=== PATIENT | male | born 1960 | race Caucasian/White ===

== ENCOUNTER 2023-04-04 09:09 | Outpatient (AMB) | payer OTHER, SELFPAY ==
--- NOTE | 2023-04-04 09:16 | A.OFFVIS_ITS ---
Intake Vital Signs 04/04/23 09:19 Height 5 ft 8 in Weight 198 lb BMI 30.1 BP 116/74 Blood Pressure Location Lt brachial Position Sitting Pulse 72 Intake Visit Reasons: Diarrhea Intake Note: Patient new consult for diarrhea and pre colonoscopy screening. Patient cc: diarrhea and soft BM. Denies any other GI issues. 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 Accompanied by: Self / Same As Patient Allergies No Known Allergies Allergy (Verified 04/04/23 09:15) HPI Diarrhea HPI Details 62 yr old patient being seen for assessm ent for diarrhea He has been having loose stools, several times a day--going on for few months hard to flush, sometimes greasy, bad smell passing urine is more difficult he has noted what he thinks are hemorrhoids when he wipes no nausea or vomiting, mild nausea last week, nothing now no abdominal pain no abx in last several months no foreign travel stress at work colonsocopy in past ?5 yrs [place] with polyps removed PMH: HLP, HTN, ADHD, anxiety PSH: TKR SH: occ alcohol, non smoker, occ THC use --production operations engineer FH: father 62, unknown cancer ROS: Constitutional : No Weight loss, No Fever, No Chills ENT/Mouth : No sore throat, No Rhinorrhea Eyes: No Swelling, No Redness Cardiovascular : No Chest Pain, No SOB, No Edema Respiratory : No Cough, No Sputum, No Wheezing Gastrointestinal : see HPI Genitourinary : NO Dysuria, No Urinary Frequency, No Hematuria, No Urgency Musculoskeletal : No joint pain, No Myalgias, No Joint Swelling Skin : No Skin Lesions, No rash Neuro : No Weakness, No Numbness, No Dizziness, No Headache Psych : No Anxiety/Panic, No Depression Heme/Lymph: No Bruising, No Lymphadenopathy Endocrine : No Polyuria, No Polydipsia All other systems reviewed and are negative. EXAM: GENERAL: The patient is well developed and nontoxic. VITAL SIGNS:see workflow HEENT: Nonicteric sclerae, PERRLA, EOMI. Oropharynx clear. Moist mucous membranes. Conjunctivae appear well perfused. No thyroid mass. CHEST: Chest wall is nontender. HEART: Regular rate and rhythm without murmurs. LUNGS: Clear to auscultation bilaterally. ABDOMEN: Soft, positive bowel sounds, nontender, no organomegaly.no flank tenderness SKIN: No rash, no excessive bruising, petechiae, or purpura. NEUROLOGIC: Cranial nerves II-XII intact without motor/sensory deficit. A/P: 1/ diarrhea, many possibilities but some red flags with blood in stool, ddx: IBD< neoplasia, infectious etiology, medication effects, endocrine Plan: 1/ Labs as below incl c diff, celiac dis ease, 2/ EGD and colonsocopy with suprep sent, PFSH Surgical History (Updated 04/04/23 @ 09:22 by Idalia Pitts) Hx of knee surgery Family History (Updated 04/04/23 @ 09:21 by Idalia Pitts) Father Cancer Social History Household Members: Family Alcohol intake: current Patient Tobacco Use Status: Never used Tobacco Substance Use Type: Marijuana Assessment & Plan Assessment & Plan (1) Diarrhea: Code(s): R19.7 - Diarrhea, unspecified Plan: Plan: 1/ Labs as below incl c diff, celiac disease, 2/ EGD and colonsocopy with suprep sent, Orders: Orders C Reactive Protein Today R19.7 - Diarrhea, unspecified Transglutaminase IgA Today R19.7 - Diarrhea, unspecified TSH reflex Free T4 Today R19.7 - Diarrhea, unspecified Fecal Fat Qualitative Today R19.7 - Diarrhea, unspecified CDiff Gene PCR Today R19.7 - Diarrhea, unspecified Lactoferrin, Fecal, Quant. Today K51.50 - Left sided colitis without complica tions, R19.7 - Diarrhea, unspecified Complete Blood Count Auto Diff Today R19.7 - Diarrhea, unspecified Comprehensive Met. Panel Today K75.81 - Nonalcoholic steatohepatitis (FLOREZ), R19.7 - Diarrhea, unspecified Transglutaminase Ab IgG Today G89.29 - Other chronic pain, R10.33 - Periumbilical pain, R19.7 - Diarrhea, unspecified UA CC w/rflx Micro + Cult Today R19.7 - Diarrhea, unspecified, R30.0 - Dysuria GI Panel Today R19.7 - Diarrhea, unspecified Medications: New sodium,potassium,mag sulfates 17.5-3.13-1.6 gram (Suprep Bowel Prep Kit) DILUTE; drink 1/2 at 6-8 pm and half at 11 PM- 1AM 354 mL 0RF Coding Level of Care Code New Pt Level 4 (32452) Diagnoses Diarrhea R19.7
[2023-04-04 09:19] VITALS: BP 116/74; PULSE 72; BMI 30.1
== END 2023-04-04 10:37 | disposition home or self-care (01) ==
PROVIDERS: Visit Provider Internal Medicine Gastroenterology
DX: R19.7 Diarrhea, unspecified (principal)
CPT/HCPCS: 99204

== ENCOUNTER 2023-04-04 09:09 | Outpatient (REF) | payer OTHER, SELFPAY ==
[2023-04-04 10:09] LABS: MANUAL DIFF FLAG NO
[2023-04-04 11:09] LABS: Basophils Percent Auto 0.4 % (0-2); Eosinophils Absolute Auto 0.3 X10*3/uL (0.0-0.4); Eosinophils Percent Auto 4.1 % (0-4); Hematocrit 47.2 % (42.0-52.0); Hemoglobin 15.4 g/dl (14.0-18.0); Imm Gran Abs Auto 0.03 X10*3/uL (0.00-0.03); Imm Gran Pct Auto 0.4 % (0.0-0.4); Lymphocytes Absolute Auto 2.3 X10*3/uL (1.2-4.9); Lymphocytes Percent Auto 31.9 % (20-40); Mean Corpuscular HGB Conc 32.6 g/dl (31.0-36.0); Mean Corpuscular Hemoglobin 30.8 pg (27.0-33.0); Mean Corpuscular Volume 94.4 fL (80.0-98.0); Monocytes Absolute Auto 0.6 X10*3/uL (0.1-1.2); Monocytes Percent Auto 8.8 % (2-11); Neutrophils Absolute Auto 3.8 x10*3/uL (2.0-8.3); Neutrophils Percent Auto 54.4 % (45-73); Platelet Count 209 X10*3/uL (160-400); Red Cell Distribution Width 13.1 % (11.0-16.0); White Blood Count 7.1 X10*3/uL (4.8-10.8)
[2023-04-04 11:10] LABS: Appearance Urine Clear; Color Urine Dark Yellow; Glucose Urine UA Negative (Negative); Leukocyte Esterase Urine Trace (Negative); Nitrite Urine Negative (Negative); PH 5.5 (5.0-9.0); Specific Gravity - Urine >= 1.030 (1.005-1.025); UMIC TRIGGER UACC YES; Urine Blood Negative (Negative); Urine Ketones Trace mg/dL (Negative); Urine Protein Trace mg/dL (Neg-Trace)
[2023-04-04 11:13] LABS: Bacteria Urine None Seen (None Seen); Hyaline Casts Urine 0-2 /LPF (0-2); RBC Urine 0-2 /HPF (0-2); Squamous Epithelial Cell Urine 0-2 /HPF (0-2); WBC Urine 0-5 /HPF (0-5)
[2023-04-04 11:54] LABS: PSA,Total (Free>4and<10) 1.76 ng/mL (0.00-4.00)
[2023-04-04 11:56] LABS: Alanine Aminotransferase 25 U/L (0-40); Albumin Level 4.1 g/dL (3.5-5.0); Alkaline Phosphatase 57 U/L (39-117); Anion Gap 15 (12-20); Aspartate Amino Transferase 21 U/L (5-37); Bilirubin Total 0.8 mg/dL (0.0-1.0); Blood Urea Nitrogen 19 mg/dL (9-16); C Reactive Protein < 0.04 mg/dL (< or = 0.50); Calcium 9.4 mg/dL (8.4-10.2); Carbon Dioxide 27 mmol/L (22-29); Chloride 106 mmol/L (96-108); Estimated Glomerular Filt Rate > 60; Glucose Random 97 mg/dL (60-115); Potassium 4.6 mmol/L (3.3-5.1); Sodium 143 mmol/L (135-145); Total Protein 6.6 g/dL (6.5-8.0)
[2023-04-04 12:00] LABS: TSH reflex Free T4 1.21 uIU/mL (0.32-4.0)
[2023-04-04 19:07] LABS: CDiff Gene PCR NEGATIVE (Negative)
[2023-04-05 10:29] LABS: Adenovirus F 40/41 Not Detected (Not Detect.); Astrovirus Not Detected (Not Detect.); Campylobacter Not Detected (Not Detect.); Cryptosporidium Not Detected (Not Detect.); Cyclospora cayetanensis Not Detected (Not Detect.); E. coli EAEC Not Detected (Not Detect.); E. coli EPEC Not Detected (Not Detect.); E. coli ETEC Not Detected (Not Detect.); E. coli STEC Not Detected (Not Detect.); Entamoeba histolytica Not Detected (Not Detect.); Giardia lamblia Not Detected (Not Detect.); Norovirus GI/GII Not Detected (Not Detect.); Plesiomonas shigelloides Not Detected (Not Detect.); Rotavirus A Not Detected (Not Detect.); Salmonella Not Detected (Not Detect.); Sapovirus Not Detected (Not Detect.); Shigella sp./EIEC Not Detected (Not Detect.); Vibrio Not Detected (Not Detect.); Vibrio Cholerae Not Detected (Not Detect.); Yersinia enterocolitica Not Detected (Not Detect.)
[2023-04-07 22:53] LABS: Transglutaminase Ab IgG <1.0 U/mL; Transglutaminase IgA <1.0 U/mL
[2023-04-09 14:39] LABS: Fecal Fat Qualitative Normal (Normal)
[2023-04-12 23:54] LABS: Lactoferrin, Fecal, Quant. <6.25 mcg/mL (<7.25)
== END 2023-04-04 09:10 | disposition home or self-care (01) ==
LOC: HO.LAB 09:09
PROVIDERS: Visit Provider Internal Medicine Gastroenterology
DX: Z12.5 Encounter for screening for malignant neoplasm of prostate (principal); R19.7 Diarrhea, unspecified; K75.81 Nonalcoholic steatohepatitis (NASH); R39.11 Hesitancy of micturition; R10.33 Periumbilical pain; G89.29 Other chronic pain; K51.50 Left sided colitis without complications
CPT/HCPCS: 36415; 80053; 81001; 81003; 82705; 83631; 84153; 84443; 85025; 86140; 86364; 87493; 87507

== ENCOUNTER 2023-04-15 12:22 | Day surgery (SDC) | payer OTHER, SELFPAY ==
--- NOTE | 2023-04-15 12:32 | MHC.SHP ---
Pre-Procedural Eval Section A - 24 Hr Update-Section A only Date of Service: 04/15/23 The patient is an INPATIENT: No The patient has been examined within 24 hours of the surgical procedure. The History & Physical has been completed within 30 days and I have reviewed it.: Yes Section B - Complete if H&P > 30 days Chief Complaint: Diarrhea, unspecified Allergies: Allergies Allergy/AdvReac Type Severity Reaction Status Date / Time No Known Allergies Allergy Verified 04/04/23 09:15 Plan I have reviewed the history and physical and performed a pertinent physical examination on my patient. No changes have occurred unless specified. Time Spent With Patient Time: Total time managing care of this patient today ____ minutes.
[2023-04-15 12:39] VITALS: BP 147/83; PULSE 78; RESP 19; TEMP 36.1; O2SAT 98; BMI 30.1
[2023-04-15] MEDS: Lactated Ringers 1,000 ML 50 ML IVCONT (13:01)
--- NOTE | 2023-04-15 13:41 | P.OP_ITS ---
Operative Note Operative Note Date of Service: 04/15/23 Narrative: Operative Information Procedure Description: EGD, Colonoscopy Indication: diarrhea, abn bowel habit Anesthesia: MAC FLEXIBLE TRANSORAL UPPER GASTROINTESTINAL ENDOSCOPY AND COLONOSCOPY PROCEDURE NOTE UPPER ENDOSCOPY Consent: Indications for the procedure and potential complications of bleeding, perforation, reaction to medications and missed diagnosis were discussed with the patient and informed consent was obtained. Instrument: Olympus variable stiffness pediatric scope 190L Monitoring: Vital signs and clinical assessment, continuous EKG monitoring, Pulse oximetry, Carbon Dioxide monitoring and blood pressure monitoring were done throughout the procedure. Procedure: The patient was placed in the left lateral decubitis position and pre-procedure medications were administered and a bite block was placed. The endoscope was inserted into the mouth and advanced under direct vision to the third part of duodenum. A careful inspection was made as the upper endoscope was withdrawn including a retroflexed examination of the proximal stomach; Findings and interventions are described below. Findings: Larynx:normal Esophagus: GE junction at 38 cm, diaphragm hiatus at 38 cm, bogginess and erythema, schatzki ring noted, bx taken aslo from distal esophagus Stomach: streaky erythema in antrum with few fundic gland polyps noted. Biopsies were obtained. Grade 2 flap valve on retroflexed examination of the cardia. Duodenum: Normal bulb and descending duodenum, bx taken Intervention: Biopsies as noted above COLONOSCOPY Instrument: Olympus variable stiffness pediatric scope 190L Colonoscopy Monitoring: Vital signs and clinical assessment, continuous EKG monitoring, Pulse oximetry, Carbon Dioxide monitoring and blood pressure monitoring were done throughout the procedure. Colon withdrawal time was 10 minutes. Procedure: The patient was placed in the left lateral decubitis position and pre-procedure medications were administered. After a digital rectal examination of the ano-rectum, the video colonoscope was inserted into the rectum and advanced through the colon to the cecum/TI. The colonoscope was slowly withdrawn in a retrograde panoramic fashion and the colon mucosa was carefully examined including a retroflexed view of the rectum. Findings and interventions are described below. Procedure Difficulty:moderate Findings: Terminal Ileum-normal, bx taken Cecum:normal Right sided retroflexion- normal Ascending Colon: normal, bx taken Transverse Colon -normal Descending Colon:normal Sigmoid Colon: mild diverticulosis, bx taken Rectum: Retroflexion with small to medum sized internal hemorrhoids, grade I Anorectum - normal Colon preparation: [place] Bowel Preparation Scale Right colon; 2 Transverse colon: 2 Left colon; 2 (0 = Unprepared colon segment with mucosa not seen due to solid stool that cannot be cleared. 1 = Portion of mucosa of the colon segment seen, but other areas of the colon segment not well seen due to staining, residual stool and/or opaque liquid. 2 = Minor amount of residual staining, small fragments of stool and/or opaque liquid, but mucosa of colon segment seen well. 3 = Entire mucosa of colon segment seen well with no residual staining, small fragments of stool or opaque liquid) Impression and Post Procedure Diagnosis: Endoscopy Findings: gastritis esophagitis schatzki ring Colonoscopy Findings: internal hemorrhoids diverticular disease Plan: Await Pathology results Repeat Colonoscopy in 10 years or earlier if clinically indicated High fiber diet leaflet avoid straining at stool, epsom salts and sitz bath, anusol supps or cream GERD precautions, if ongoing sx then VCE vs CTe to r/o enteritis Above findings were reviewed with the patient and relevant handouts were provided if indicated.
--- NOTE | 2023-04-15 14:06 | HO.ANESPROP2 ---
HPI - Anesthesia Eval Consult details Narrative: 62 M for colonoscopy PMF Active Problems Active Problems: All Active Problems (Updated 04/11/23 @ 11:07 by Moni Garcia, RN) Urinary hesitancy (Acute) Diarrhea (Acute) Past Medical History Medical History (Updated 04/11/23 @ 11:07 by Moni Garcia, RN) Anxiety ADHD Elevated cholesterol HTN (hypertension) Family History Family History (Updated 04/04/23 @ 09:21 by Idalia Pitts) Father Cancer Family history of problems with anesthesia: No Surgical History Surgical History (Updated 04/15/23 @ 13:04 by Heydi Evans RN) Hx of colonoscopy Hx of knee surgery History of Problems with Anesthesia: No Social History Social History (Updated 04/04/23 @ 09:22 by Idalia Pitts) Household Members: Family Alcohol intake: current Patient Tobacco Use Status: Never used Tobacco Substance Use Type: Marijuana Substance Use Type Other:: yesterday last dose Are you DNR?: No Advance Directives: No Advance Directives Information Provided: Yes Recently lost weight without trying: No Nutrition Risks: No Nutritional Risk Meds Allergies Allergy/AdvReac Type Severity Reaction Status Date / Time No Known Allergies Allergy Verified 04/04/23 09:15 Active Medications: Current Medications Lactated Ringer's (Lr) 1,000 mls @ 50 mls/hr IVCONT .Q20H ROYER Last Admin: 04/15/23 13:01 Dose: 50 mls/hr Home Medications Medication Instructions Recorded Confirmed Last Taken Type atorvastatin 40 mg tablet 40 mg PO DAILY 04/04/23 04/15/23 04/15/23 History escitalopram oxalate 10 mg tablet 10 mg PO DAILY 04/04/23 04/15/23 04/15/23 History losartan 50 mg-hydrochlorothiazide 1 tab PO DAILY 04/04/23 04/15/23 04/15/23 History 12.5 mg tablet methylphenidate HCl 18 mg 18 mg PO QAM 04/15/23 04/15/23 04/14/23 History tablet,extended release 24 hr Exam Height,Weight and Vital Signs: Height 5 ft 8 in Weight 198 lb 3.2 oz Last Vital Signs Temp 97 F 04/15/23 12:39 Pulse 78 04/15/23 12:39 Resp 19 04/15/23 12:39 BP 147/83 H 04/15/23 12:39 Pulse Ox 98 04/15/23 12:39 O2 Del Method Room Air 04/15/23 12:39 Airway Mallampati Class: II TM Dist: >3cm Neck ROM: Full Loose/Missing/Broken Teeth: No Assessment and Plan Assessment Anesthesia Assessment: Anesthesia Plan Discussed and Chart Reviewed Final Anesthetic Review Family History of Problems with Anesthesia: No History of Problems with Anesthesia: No NPO: Yes ASA Class: II Final Preanesthetic Review: No Changes in Pt Med Stat, Meds/Allgs Chart Reviewed, Consent Obtained/Reviewed and Anes Risks/Benef Reviewed Patient Risk: Low Procedure Risk: Low Anesthetic Plan Anesthetic Plan: MAC: Disposition: Standard PACU
[2023-04-15 14:10] VITALS: BP 120/82; PULSE 85; RESP 20; TEMP 36.1; O2SAT 100
[2023-04-15 14:25] VITALS: BP 137/92; PULSE 72; RESP 16; TEMP 36.6; O2SAT 98
== END 2023-04-15 14:56 | disposition home or self-care (01) ==
PROVIDERS: Visit Provider Internal Medicine Gastroenterology
PROC: (CPT 45380; principal; 2023-04-15 14:40)
DX: R19.4 Change in bowel habit (principal); R19.7 Diarrhea, unspecified; K57.30 Diverticulosis of large intestine without perforation or abscess without bleeding; K64.0 First degree hemorrhoids; K29.70 Gastritis, unspecified, without bleeding; K22.2 Esophageal obstruction; K20.90 Esophagitis, unspecified without bleeding; K31.7 Polyp of stomach and duodenum; K44.9 Diaphragmatic hernia without obstruction or gangrene; I10 Essential (primary) hypertension; E78.5 Hyperlipidemia, unspecified; F90.9 Attention-deficit hyperactivity disorder, unspecified type; F41.9 Anxiety disorder, unspecified; Z79.899 Other long term (current) drug therapy
CPT/HCPCS: 45380; 43239; 88305; 88313; 88342; J2704

== ENCOUNTER → 2023-04-15 12:22 | Outpatient (BNV) | payer OTHER, SELFPAY | PROVIDERS: Visit Provider Internal Medicine Gastroenterology | DX: K20.90 Esophagitis, unspecified without bleeding (principal); K22.2 Esophageal obstruction; K29.70 Gastritis, unspecified, without bleeding; K57.90 Diverticulosis of intestine, part unspecified, without perforation or abscess without bleeding; K64.8 Other hemorrhoids | CPT/HCPCS: 43239; 45380 ==

== ENCOUNTER 2023-08-22 08:51 | Outpatient (AMB) | payer OTHER, SELFPAY ==
--- NOTE | 2023-08-22 08:57 | A.OFFVIS_ITS ---
Vital Signs 08/22/23 09:02 Height 5 ft 8 in Weight 198 lb BMI 30.1 BP 130/72 Blood Pressure Location Lt brachial Position Sitting Pulse 60 Intake Visit Reasons: S/P Double; Dr. Gibson Intake Note: Patient follow up for EGD/Colonoscopy results. Patient cc: loose stool with some bloody hemorrhoids on and off, denies any other GI issues. 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 Gisbon: Details: 62 yr old patient being seen for f/u for diarrhea RECAP He had been having loose stools, several times a day--going on for few months hard to flush, sometimes greasy, bad smell passing urine is more difficult he had noted what he thinks are hemorrhoids when he wipes colonsocopy in past ?5 yrs [place] with polyps removed EGD/colo 04/15/23 schatzki ring, esophagitis gastritis int hemorrhoids diverticulosis PATH: active esophagitis colon bx nml stool nml --neg PCR, neg lactoferrin neg TTG INTERIM: still has some loose stools esomeprazole working well for heartburn no nausea or vomiting, mild nausea last week, nothing now no abdominal pain no foreign travel new job starting soon, less stress, working for sales in [employer] EXAM: GENERAL: The patient is well developed and nontoxic. VITAL SIGNS:see workflow HEENT: Nonicteric sclerae, PERRLA, EOMI. Oropharynx clear. Moist mucous membranes. Conjunctivae appear well perfused. No thyroid mass. CHEST: Chest wall is nontender. HEART: Regular rate and rhythm without murmurs. LUNGS: Clear to auscultation bilaterally. ABDOMEN: Soft, positive bowel sounds, nontender, no organomegaly.no flank tenderness SKIN: No rash, no excessive bruising, petechiae, or purpura. NEUROLOGIC: Cranial nerves II-XII intact without motor/sensory deficit. A/P: 1/ diarrhea, possibly from bile acid malabsorption, thinks happened after gb removal, ddx: cho intolerance, gluten intolerance, IBS-D Plan: 1/ High fiber intake and increase fluids 6 glasses a day 2/ trial of welchol [facility] Medical History (Updated 04/11/23 @ 11:07 by Moni Garcia RN) Anxiety ADHD Elevated cholesterol HTN (hypertension) Surgical History Hx of colonoscopy Hx of knee surgery Family History Father Cancer Social History Household Members: Family Alcohol intake: current Patient Tobacco Use Status: Never used Tobacco Substance Use Type: Marijuana Physical Exam Vital Signs: Last Vital Signs Pulse 60 08/22/23 09:02 BP 130/72 08/22/23 09:02 BMI result Body Mass Index 30.1 Assessment & Plan Assessment & Plan (1) Diarrhea: Code(s): R19.7 - Diarrhea, unspecified Category: Medical Plan: see above Medications: New colesevelam (WelChol) 1,250 mg (2 x 625 mg) PO BID 120 tabs 0RF Coding Level of Care Code Est Pt Level 3 (54913) Diagnoses Diarrhea R19.7
[2023-08-22 09:02] VITALS: BP 130/72; PULSE 60; BMI 30.1
== END 2023-08-22 09:26 | disposition home or self-care (01) ==
PROVIDERS: PCP Internal Medicine; Visit Provider Internal Medicine Gastroenterology
DX: R19.7 Diarrhea, unspecified (principal)
CPT/HCPCS: 99213

== ENCOUNTER → 2023-08-22 08:51 | Outpatient (BNVA) | payer OTHER, SELFPAY | PROVIDERS: PCP Internal Medicine; Visit Provider Internal Medicine Gastroenterology ==

== ENCOUNTER 2023-12-15 15:15 | Outpatient (AMB) | payer OTHER, SELFPAY ==
--- NOTE | 2023-12-15 15:27 | A.OFFVIS_ITS ---
Vital Signs 12/15/23 15:28 Height 5 ft 8 in Weight 211 lb 10.3 oz BMI 32.2 BP 112/64 Blood Pressure Location Lt brachial Position Sitting Pulse 73 Intake Visit Reasons: 4 month follow up Intake Note: Rubin presents in the office as a 4 month follow up. CC: He states that he is not having any concerns - the medication seems to be helping with his stomach. It is hard for him to remember all the time because he has to take it 4 hours after other medications and he takes it at dinner. Avionic Technician Required: No Allergies No Known Allergies Allergy (Verified 08/22/23 08:57) HPI HPI 4 month follow up: Details: 63 yr old patient being seen for f/u for diarrhea RECAP He had been having loose stools, several times a day--going on for few months hard to flush, sometimes greasy, bad smell passing urine is more difficult he had noted what he thinks are hemorrhoids when he wipes colonsocopy in past ?5 yrs [place] with polyps removed EGD/colo 04/15/23 schatzki ring, esophagitis gastritis int hemorrhoids diverticulosis PATH: active esophagitis colon bx nml stool nml --neg PCR, neg lactoferrin neg TTG INTERIM: he is doing well happy with welchol, no diarrhea with it no nausea or vomiting, no abdominal pain appetite good EXAM: GENERAL: The patient is well developed and nontoxic. VITAL SIGNS:see workflow HEENT: Nonicteric sclerae, PERRLA, EOMI. Oropharynx clear. Moist mucous membranes. Conjunctivae appear well perfused. No thyroid mass. CHEST: Chest wall is nontender. HEART: Regular rate and rhythm without murmurs. LUNGS: Clear to auscultation bilaterally. ABDOMEN: Soft, positive bowel sounds, nontender, no organomegaly.no flank tenderness SKIN: No rash, no excessive bruising, petechiae, or purpura. NEUROLOGIC: Cranial nerves II-XII intact without motor/sensory deficit. A/P: 1/ Diarrhea, 2/2 BAM 2/ GERD Plan: 1/ cont with PPI and multivitamin due to active esophagitis 2/ cont wlechol can cut to once a day PFSH Medical History Anxiety ADHD Elevated cholesterol HTN (hypertension) Surgical History Hx of colonoscopy Hx of knee surgery Family History Father Cancer Social History Household Members: Family Alcohol intake: current Patient Tobacco Use Status: Never used Tobacco Substance Use Type: Marijuana Physical Exam Vital Signs: Last Vital Signs Pulse 73 12/15/23 15:28 BP 112/64 12/15/23 15:28 BMI result Body Mass Index 32.2 Assessment & Plan Assessment & Plan (1) Diarrhea: Code(s): R19.7 - Diarrhea, unspecified Category: Medical Plan: see above Medications: Refilled esomeprazole magnesium 20 mg PO DAILY 90 caps 4RF Coding Level of Care Code Est Pt Level 3 (50631) Diagnoses Diarrhea R19.7
[2023-12-15 15:28] VITALS: BP 112/64; PULSE 73; BMI 32.2
== END 2023-12-15 16:07 | disposition home or self-care (01) ==
PROVIDERS: PCP Internal Medicine; Visit Provider Internal Medicine Gastroenterology
DX: R19.7 Diarrhea, unspecified (principal)
CPT/HCPCS: 99213

== ENCOUNTER → 2023-12-15 15:15 | Outpatient (BNVA) | payer OTHER, SELFPAY | PROVIDERS: PCP Internal Medicine; Visit Provider Internal Medicine Gastroenterology ==